=== PATIENT | female | born 1965 | race Caucasian/White ===

== ENCOUNTER → 2016-07-04 | Outpatient (CLI) | payer BC ==
[~2016-07-04] MED LIST: ESTRACE0.5 MG PO; HYDROCHLOROTH12.5 MG PO; MELOXICAM15 MG PO; MINOCIN PO; PRILOSEC PO
--- NOTE | ~2016-07-04 | EKG ---
PATIENT: TIFFANIE ENGLE UNIT #: [id number] Ventricular Rate: 77 BPM Atrial Rate: 77 BPM P-R Interval: 182 ms QRS Duration: 84 ms Q-T Interval: 380 ms QTC Calculation(Bezet): 430 ms P [place]: 52 degrees Calculated R [place]: 50 degrees Calculated T [place]: 42 degrees Diagnosis Line: Normal sinus rhythm Diagnosis Line: Normal ECG Diagnosis Line: No previous ECGs available Diagnosis Line: Confirmed by KING NEWMAN MD ([id number]) on 07/06/2016 Diagnosis Line: 9:44:46 AM INTERPRETING MD: TRENT VIEIRA
[2016-07-04 09:44] LABS: BUN/CREATININE RATIO 17.5; CALCIUM SERUM 9.5 mg/dL (8.4-10.2); CREATININE SERUM 0.8 mg/dL (0.6-1.4); GLOM FILT RATE Estimated 84.8 mL/min (>60); POTASSIUM 3.6 mmol/L (3.5-5.1)
== END | disposition home or self-care (01) ==
LOC: CAMB 07:52
PROVIDERS: Orthopaedic Surgery
DX: S83.241A Other tear of medial meniscus, current injury, right knee, initial encounter (principal); I10 Essential (primary) hypertension
CPT/HCPCS: 36415; 80048; 93005

== ENCOUNTER → 2016-07-08 | Day surgery (SDC) | payer BC ==
--- NOTE | ~2016-07-08 | OR ---
Unit #: [id number] #: [id number] Patient: TIFFANIE ENGLE [id number] [address] [place], [place] [address] [id number] MR#: [id number] NAME: TIFFANIE ENGLE ROOM: Date of Procedure: 07/08/2016 Admission Date: 07/08/2016 Surgeon: Dionicio Eason M.D. : 1965 Attending Physician: Dionicio Eason M.D. PROCEDURE OPERATIVE NOTE PREOPERATIVE DIAGNOSIS Right knee medial meniscus tear. POSTOPERATIVE DIAGNOSES 1. Medial meniscus tear, right knee. 2. Grade 4 chondral lesion, medial tibial plateau. 3. Grade 3 chondral lesion, distal trochlea. 4. 1 cm loose body. PROCEDURES PERFORMED 1. Partial arthroscopic medial meniscectomy. 2. Removal of 1 cm loose body. 3. Debridement of full-thickness cartilage lesion, medial tibial plateau. 4. Chondroplasty, trochlea. QUALITY ASSURANCE CLERK Velasquez. DESCRIPTION OF PROCEDURE After obtaining informed consent, she was taken to the operating room and placed in a supine position. After adequate induction of general anesthesia, she was prepped and draped in a sterile fashion. Standard anteromedial and anterolateral portals were made. The arthroscope was introduced into the knee. The suprapatellar pouch was normal. The undersurface of patella showed some mild fibrillation. There was a grade 3 lesion on the medial aspect of the distal trochlea, which was debrided using a shaver. No full-thickness lesion was seen. The medial and lateral gutters were free of loose body. The medial joint was examined. There was a complex tear of the posterior horn of the medial meniscus. There was a grade 4 lesion in the posteromedial aspect of the medial tibial plateau. The edges of this were debrided using a shaver. Per her wishes, no microfracture or cartilage procedure was done. The edges were smoothed as much as possible. Straight and right-biting baskets were used to resect the medial meniscus to a stable rim. Final contouring was done with a shaver. There were mild grade 3 changes on the medial femoral condyle. The notch was examined. The ACL was intact. The lateral joint was examined; it was found to be intact. The lateral gutter had a 1-cm loose body, which was delivered into the lateral joint and removed. The portals were closed with 4-0 Vicryl suture and infiltrated with 0.25% Unit #: [id number] #: [id number] Patient: TIFFANIE ENGLE with epinephrine. She was sent to recovery room, stable. Dictated by... Garett Skinner/gary TD: 07/08/2016 08:38 JOB #: [id number] PROCEDURE OPERATIVE NOTE Page 1 of 1 X Gurvinder Eason MD X PROCEDURE OPERATIVE NOTE
== END | disposition home or self-care (01) ==
LOC: CSUR 05:46
DX: M23.221 Derangement of posterior horn of medial meniscus due to old tear or injury, right knee (principal); M25.861 Other specified joint disorders, right knee; I10 Essential (primary) hypertension; M17.11 Unilateral primary osteoarthritis, right knee; K21.9 Gastro-esophageal reflux disease without esophagitis; Z79.51 Long term (current) use of inhaled steroids; Z79.1 Long term (current) use of non-steroidal anti-inflammatories (NSAID); Z79.2 Long term (current) use of antibiotics; Z79.899 Other long term (current) drug therapy; Z90.710 Acquired absence of both cervix and uterus
CPT/HCPCS: J2250; J2405; J3010